=== PATIENT | male | born 1940 | race Caucasian/White ===

== ENCOUNTER 2018-03-12 17:09 | Emergency (ER) | payer MEDICARE, OTHER ==
[2018-03-12] MEDS ORDERED: IOPAMIDOL-300 100 ML VIAL IVP ONE ×2 (17:10→19:15)
--- NOTE | 2018-03-12 18:20 | ED Physician Documentation ---
History of Present Illness - Stated complaint Stated Complaint: HIGH BP - Chief complaint Chief Complaint: Neuro - History obtained from History obtained from: Patient, Family - History of Present Illness Timing: Yesterday Pain level max: 0 Pain level now: 0 Improved by: time Worsened by: nothing - Additonal information Additional information: Patient is a 77-year-old male who presents to the emergency department stating that he had states this lasted approximately 1 hour and was like a dark shade being pulled over the eye. Now resolved. Feels normal currently. No focal numbness or weakness. No difficulty with speech. Patient states that he did receive an epidural steroid injection for pain in his back several days ago. No fevers. Has had some intermittent headaches since that time. Patient also states that he took his blood pressure today and noted to that his blood pressure is high. Did not take it last night. Review of Systems Ten Systems: 10 systems reviewed and negative Constitutional: denies: Fever, Chills Ears: denies: Ear pain Nose: denies: Rhinorrhea / runny nose, Congestion Throat: denies: Sore throat Cardiac: denies: Chest pain / pressure Respiratory: denies: Cough GI: denies: Nausea, Vomiting, Diarrhea : denies: Dysuria Skin: denies: Rash Musculoskeletal: denies: Neck pain, Back pain Neurologic: denies: Focal weakness, Numbness, Headache PD PAST MEDICAL HISTORY - Past Medical History Cardiovascular: High cholesterol, Arrhythmia Neuro: None GI: Hiatal hernia : Benign prostate hypertrophy, Kidney stones Musculoskeletal: Chronic back pain - Past Surgical History General: Hiatal hernia repair, Colonoscopy, EGD Ortho: Spine surgery Neuro: Gamma knife HEENT: Tonsil/Adenoidectomy - Present Medications Home Medications: Ambulatory Orders Medication Instructions Recorded Confirmed Aspirin [Adult Aspirin] 81 mg DAILY 03/12/18 03/12/18 Doxycycline Hyclate 50 mg DAILY 03/12/18 03/12/18 Magnesium 250 mg DAILY 03/12/18 03/12/18 Potassium Citrate [Potassium 03/12/18 Citrate ER] Pravastatin [Pravachol] 40 mg DAILY 03/12/18 03/12/18 Tamsulosin HCl [Flomax] 0.4 mg DAILY 03/12/18 03/12/18 - Allergies Allergies/Adverse Reactions: Allergies Allergy/AdvReac Type Severity Reaction Status Date / Time codeine Allergy Intermediate Nausea Verified 03/12/18 17:27 tramadol Allergy Intermediate Nausea Verified 03/12/18 17:27 - Social History Does the pt smoke?: Yes Smoking Status: Current every day smoker Does the pt drink ETOH?: Yes Does the pt have substance abuse?: No PD ED PE NORMAL - Vitals Vital signs reviewed: Yes - General General: Alert and oriented X 3, No acute distress - HEENT HEENT: PERRL, EOMI, Moist mucous membranes, Other (Normal funduscopic exam bilaterally. Normal ultrasound of the eyes bilaterally. No retinal detachment. Optic nerve diameters are normal. no papilledema) - Neck Neck: Supple, no meningeal sign, No JVD, No bruit - Cardiac Cardiac: RRR, Strong equal pulses - Respiratory Respiratory: No respiratory distress, Clear bilaterally - Abdomen Abdomen: Soft, Non tender, Non distended - Derm Derm: Warm and dry - Neuro Neuro: Alert and oriented X 3, change control coordinator 2-12 intact, No motor deficit, No sensory deficit, Normal speech - Psych Psych: Normal mood, Normal affect Results - Vitals Vitals: Vital Signs - 24 hr 03/12/18 03/12/18 03/12/18 17:20 19:00 20:00 Temperature 36.4 C L Heart Rate 80 60 58 L Respiratory 16 18 18 Rate Blood Pressure 136/93 H 132/96 H 125/88 H O2 Saturation 96 95 95 Oxygen O2 Source Room air - EKG (time done) 1759 Rate: Rate (enter#) (67) Rhythm: NSR [place]: Normal Intervals: Normal NM QRS: Normal Ischemia: Normal ST segments - Labs Labs: Laboratory Tests 03/12/18 03/12/18 03/12/18 18:32 18:32 18:32 WBC 10.3 RBC 4.71 Hgb 15.6 Hct 44.3 MCV 93.9 MCH 33.0 H MCHC 35.2 RDW 13.8 Plt Count 210 MPV 8.7 Neut # (Auto) 6.9 H Lymph # (Auto) 2.2 [place] # (Auto) 0.9 Eos # (Auto) 0.2 Baso # (Auto) 0.1 Absolute Nucleated RBC 0.01 Nucleated RBC % 0.1 ESR 1 Sodium 137 Potassium 3.7 Chloride 104 Carbon Dioxide 26 Anion Gap 7.0 BUN 27 H Creatinine 1.0 Estimated GFR (MDRD) 73 L Glucose 92 Calcium 9.1 Total Bilirubin 0.9 AST 17 ALT 21 Alkaline Phosphatase 43 C-Reactive Protein Total Protein 6.7 Albumin 4.1 Globulin 2.6 Albumin/Globulin Ratio 1.6 03/12/18 18:32 WBC RBC Hgb Hct MCV MCH MCHC RDW Plt Count MPV Neut # (Auto) Lymph # (Auto) [place] # (Auto) Eos # (Auto) Baso # (Auto) Absolute Nucleated RBC Nucleated RBC % ESR Sodium Potassium Chloride Carbon Dioxide Anion Gap BUN Creatinine Estimated GFR (MDRD) Glucose Calcium Total Bilirubin AST ALT Alkaline Phosphatase C-Reactive Protein < 1.0 Total Protein Albumin Globulin Albumin/Globulin Ratio - Rads (name of study) CTA head Radiology: Prelim report reviewed, EMP read contemporaneously, See rad report ( No evidence of acute intracranial abnormality on the noncontrast CT head. Specifically, no evidence of acute infarct, intracranial hemorrhage, mass effect , midline shift, or hydrocephalus. 2. No abnormal enhancement on the postcontrast CT head. 3. No CTA evidence of hemodynamically significant stenosis , large vessel occlusion, acute dissection, aneurysm, or vascular malformation within intracranial arteries. Concurrently obtained CTA neck is dictated separately. ) CTA neck Radiology: Prelim report reviewed, EMP read contemporaneously, See rad report ( Normal neck CT angiogram. No hemodynamically significant stenoses, dissections, occlusions. The left vertebral artery is dominant. 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 ) PD MEDICAL DECISION MAKING - ED course Complexity details: reviewed results, re-evaluated patient, considered differential, d/w patient, d/w family ED course: Patient is a 77-year-old male who presents to the emergency department with what appears to be a transient monocular vision loss of the right eye yesterday. No recurrent symptoms today. No acute findings on CT angiogram of the head or neck. He is in sinus rhythm on EKG. No acute laboratory findings. The MRI is broken this weekend and unavailable. He is comfortable going home and following up closely with his doctor for further care. We will have him start on an aspirin daily. Patient and family counseled regarding signs and symptoms for which I believe and urgent re-evaluation would be necessary. Patient with good understanding of and agreement to plan and is comfortable going home at this time This document was made in part using voice recognition software. While efforts are made to proofread this document, sound alike and grammatical errors may occur. - Sepsis Event Vital Signs: Vital Signs - 24 hr 03/12/18 03/12/18 03/12/18 17:20 19:00 20:00 Temperature 36.4 C L Heart Rate 80 60 58 L Respiratory 16 18 18 Rate Blood Pressure 136/93 H 132/96 H 125/88 H O2 Saturation 96 95 95 Oxygen O2 Source Room air Departure - Departure Disposition: 01 Home, Self Care Clinical Impression: Amaurosis fugax Condition: Good Instructions: ED Transient Ischemic Attack Follow-Up: Rivera Bruce MD [Primary Care Provider] - 03/14/18 Comments: Start on a full dose aspirin daily (325mg). Your EKG, lab testing, and CT angiograms of your head and neck are normal tonight. You should have an MRI with your doctor and will likely need a neurology and ophthalmology referral. Return if you worsen. Discharge Date/Time: 03/12/18 20:51
[2018-03-12] MEDS ORDERED: IOPAMIDOL-300 100 ML VIAL ONE (18:23)
[2018-03-12 18:38] LABS: BASOPHILS # (AUTO) 0.1 10^3/uL (0.0-0.1); EOSINOPHILS # (AUTO) 0.2 10^3/uL (0.0-0.7); EOSINOPHILS % (AUTO) 1.8 %; HGB - HEMOGLOBIN 15.6 g/dL (14.0-18.0); LYMPHOCYTES # (AUTO) 2.2 10^3/uL (1.5-3.5); LYMPHOCYTES % (AUTO) 21.7 %; MEAN CORPUSCULAR HGB CONC 35.2 g/dL (32.0-36.0); MEAN CORPUSCULAR VOLUME 93.9 fL (80.0-94.0); MEAN PLATELET VOLUME 8.7 fL (7.4-11.4); MONOCYTES # (AUTO) 0.9 10^3/uL (0.0-1.0); MONOCYTES % (AUTO) 8.9 %; NEUTROPHILS # (AUTO) 6.9 10^3/uL (1.5-6.6); NEUTROPHILS % (AUTO) 66.6 %; PLT - PLATELET COUNT 210 10^3/uL (130-450); RED BLOOD COUNT 4.71 10^6/uL (4.70-6.10); RED CELL DISTRIBUTION WIDTH 13.8 % (12.0-15.0); WHITE BLOOD COUNT 10.3 x10^3/uL (4.8-10.8)
[2018-03-12 18:51] LABS: ALBUMIN 4.1 g/dL (3.2-5.5); ALBUMIN/GLOBULIN RATIO 1.6 (1.0-2.2); BILIRUBIN,TOTAL 0.9 mg/dL (0.2-1.0); CALCIUM 9.1 mg/dL (8.5-10.3); TOTAL PROTEIN 6.7 g/dL (6.7-8.2)
[2018-03-12] MEDS ORDERED: SODIUM CHLORIDE 0.9% 1,000 ML IV ONE ×2 (18:56)
--- NOTE | 2018-03-12 19:41 | CT Report ---
Reason: R eye vision loss yesterday Procedure Date: 03/12/2018 Accession Number: [id number] / [id number] Procedure: CT - Head Angio CPT Code: FULL RESULT: EXAM: CT ANGIOGRAM HEAD. CT SCAN OF THE HEAD WITHOUT AND WITH CONTRAST. EXAM DATE: 03/12/2018 07:14 PM CLINICAL HISTORY: 77-year-old male. Right eye vision loss yesterday, COMPARISON: None. TECHNIQUE: - CT Scan Head: Using a multidetector scanner, axial images were acquired from the foramen magnum to the skull vertex prior to and following contrast administration. - CT Angiogram: Using a multidetector scanner, high-resolution axial images were acquired from the skull base through vertex following rapid infusion of intravenous contrast. Reformats: Multiplanar MIP reformats were reconstructed. Nascet criteria used for stenosis measurement. IV Contrast: ISOVUE 300 60mL. In accordance with CT protocol optimization, one or more of the following dose reduction techniques were utilized for this exam: automated exposure control, adjustment of mA and/or KV based on patient size, or use of iterative reconstructive technique. FINDINGS: NON-CONTRAST HEAD: Parenchyma: No intraparenchymal hemorrhage. No evidence of mass, midline shift, or CT findings of infarction. Garrison-white differentiation is distinct. Extraaxial Spaces: Normal for age. No subdural or epidural collections identified. Ventricles: Normal in size and position. Sinuses and orbits: Imaged paranasal sinuses, orbits, and mastoids show no significant abnormality. Bones: No evidence of fracture or calvarial defect. Other: None. POST-CONTRAST HEAD: No abnormal enhancement. CT ANGIOGRAM HEAD: Mild atherosclerosis right carotid siphon, no hemodynamically significant stenosis. Mild atherosclerosis left carotid siphon, no hemodynamically significant stenosis. Patent posterior communicating arteries bilaterally. The right vertebral artery is dominant. There is PICA termination of the small left vertebral artery. Basilar artery is unremarkable. Near configuration of the left LEARNING OFFICER with small P1 segment. The left LEARNING OFFICER is otherwise unremarkable. Near configuration of the right LEARNING OFFICER, with small P1 segment. The right LEARNING OFFICER is otherwise unremarkable. The right MCA is unremarkable. The ACAs bilaterally are unremarkable. The left MCA is unremarkable. DURAL VENOUS SINUSES AND MAJOR CENTRAL VEINS: Patent. IMPRESSION: 1. No evidence of acute intracranial abnormality on the noncontrast CT head. Specifically, no evidence of acute infarct, intracranial hemorrhage, mass effect, midline shift, or hydrocephalus. 2. No abnormal enhancement on the postcontrast CT head. 3. No CTA evidence of hemodynamically significant stenosis, large vessel occlusion, acute dissection, aneurysm, or vascular malformation within intracranial arteries. 4. Concurrently obtained CTA neck is dictated separately. RADIA
--- NOTE | 2018-03-12 19:47 | CT Report ---
Reason: R eye vision loss yesterday Procedure Date: 03/12/2018 Accession Number: [id number] / [id number] Procedure: CT - Neck Angio CPT Code: FULL RESULT: EXAM: CT ANGIOGRAM NECK EXAM DATE: 03/12/2018 07:14 PM. CLINICAL HISTORY: 77-year-old male, right eye vision louse yesterday, since resolved COMPARISON: None. TECHNIQUE: Routine axial helical imaging was performed from the skull base through the aortic arch. Reconstructions: Routine multiplanar 3D MIP reconstructions. IV Contrast: ISOVUE 300 60mL. Evaluation of arterial stenosis is based on a NASCET method of measurement. In accordance with CT protocol optimization, one or more of the following dose reduction techniques were utilized for this exam: automated exposure control, adjustment of mA and/or KV based on patient size, or use of iterative reconstructive technique. FINDINGS: Right Carotid: The common carotid, internal carotid, and external carotid arteries are widely patent. No dissection, significant atherosclerotic plaque, or calcification identified. Left Carotid: The common carotid, internal carotid, and external carotid arteries are widely patent. No dissection, significant atherosclerotic plaque, or calcification identified. The cervical left ICA is tortuous but otherwise unremarkable. Vertebrals: The left vertebral artery is dominant. 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 The left vertebral artery is unremarkable. Intracranial Circulation: Concurrently obtained CTA head is dictated separately. Other: The visualized lung apices are clear. Moderate multilevel spondylosis of the visualized spine, no acute fracture or malalignment. The visualized soft tissues demonstrate no acute abnormality. IMPRESSION: 1. Normal neck CT angiogram. No hemodynamically significant stenoses, dissections, occlusions. 2. The left vertebral artery is dominant. 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 RADIA
[2018-03-12 20:24] VITALS: BP 125/88
== END 2018-03-12 20:51 | disposition home or self-care (01) ==
LOC: ED 17:09
DX: G45.3 Amaurosis fugax (principal); Z79.82 Long term (current) use of aspirin; F17.200 Nicotine dependence, unspecified, uncomplicated
CPT/HCPCS: 36415; 70496; 70498; 80053; 85025; 85651; 86140; 93005; 96360; 99283; 99284; Q9967

== ENCOUNTER 2019-03-06 09:27 | Emergency (ER) | payer MEDICARE, OTHER ==
--- NOTE | 2019-03-06 10:12 | ED Physician Documentation ---
PD HPI MALE - Stated complaint Stated Complaint: MALE - Chief complaint Chief Complaint: UTI - History obtained from History obtained from: Patient - History of Present Illness Timing - onset: Yesterday Timing - duration: Days (1/2) Timing - details: Abrupt onset Associated symptoms: Urinary frequency, Unable to urinate. No: Hematuria, Discharge PD HPI MALE CONTRIB FACTORS: No: Sexually active, Exposed to STD Similar symptoms before: Has not had sx before Recently seen: Not recently seen Review of Systems Constitutional: denies: Fever, Chills, Myalgias Nose: denies: Rhinorrhea / runny nose, Congestion Throat: denies: Sore throat Respiratory: denies: Cough GI: denies: Abdominal Pain, Nausea, Vomiting, Diarrhea : reports: Frequency, Unable to Void. denies: Discharge Skin: denies: Rash, Lesions PD PAST MEDICAL HISTORY - Past Medical History Cardiovascular: High cholesterol, Arrhythmia Neuro: None GI: Hiatal hernia : Benign prostate hypertrophy, Kidney stones Musculoskeletal: Chronic back pain - Past Surgical History General: Hiatal hernia repair, Colonoscopy, EGD Ortho: Spine surgery Neuro: Gamma knife HEENT: Tonsil/Adenoidectomy - Present Medications Home Medications: Ambulatory Orders Medication Instructions Recorded Confirmed Aspirin [Adult Aspirin] 81 mg DAILY 03/12/18 03/12/18 Doxycycline Hyclate 50 mg DAILY 03/12/18 03/12/18 Magnesium 250 mg DAILY 03/12/18 03/12/18 Potassium Citrate [Potassium 03/12/18 Citrate ER] Pravastatin [Pravachol] 40 mg DAILY 03/12/18 03/12/18 Tamsulosin HCl [Flomax] 0.4 mg DAILY 03/12/18 03/12/18 Cephalexin [Keflex] 500 mg PO TID #21 capsule 03/06/19 Phenazopyridine HCl [Pyridium] 100 mg PO TID PRN #15 tablet 03/06/19 - Allergies Allergies/Adverse Reactions: Allergies Allergy/AdvReac Type Severity Reaction Status Date / Time codeine Allergy Intermediate Nausea Verified 03/12/18 17:27 tramadol Allergy Intermediate Nausea Verified 03/12/18 17:27 - Social History Does the pt smoke?: Yes Smoking Status: Current every day smoker Does the pt drink ETOH?: Yes Does the pt have substance abuse?: No PD ED PE NORMAL - Vitals Vital signs reviewed: Yes - General General: Alert and oriented X 3, No acute distress, Well developed/nourished - Abdomen Abdomen: Normal bowel sounds, Soft, Non distended - Male Male : Other (normal genitalia) - Back Back: No CVA TTP - Derm Derm: Normal color, Warm and dry Results - Vitals Vitals: Vital Signs - 24 hr 03/06/19 03/06/19 09:40 11:49 Temperature 36.1 C L Heart Rate 80 82 Respiratory 18 16 Rate Blood Pressure 117/88 H 108/92 H O2 Saturation 97 96 Oxygen O2 Source Room air - Labs Labs: Laboratory Tests 03/06/19 03/06/19 10:32 10:45 Sodium 136 Potassium 3.7 Chloride 99 L Carbon Dioxide 29 Anion Gap 8.0 BUN 23 H Creatinine 1.2 Estimated GFR (MDRD) 59 L Glucose 91 Calcium 8.7 Total Bilirubin 1.3 H AST 17 ALT 24 Alkaline Phosphatase 46 Total Protein 6.4 L Albumin 3.7 Globulin 2.7 Albumin/Globulin Ratio 1.4 Lipase 31 Urine Color YELLOW Urine Clarity CLEAR Urine pH 7.0 Ur Specific [place] 1.010 Urine Protein NEGATIVE Urine Glucose (UA) NEGATIVE Urine Ketones NEGATIVE Urine Occult Blood NEGATIVE Urine Nitrite NEGATIVE Urine Bilirubin NEGATIVE Urine Urobilinogen 0.2 (NORMAL) Ur Leukocyte Esterase TRACE H Urine RBC 0-5 Urine WBC 0-3 Ur Squamous Epith Cells RARE Squamous Urine Bacteria Rare Ur Microscopic Review INDICATED Urine Culture Comments INDICATED PD MEDICAL DECISION MAKING - ED course Complexity details: reviewed results (uA suggestive of UTI. Would correlate with symptoms. ), considered differential (mild retention with about 200 ml, but still able to void small amounts. Did not feel he needed guzman. ), d/w patient Departure - Departure Disposition: 01 Home, Self Care Clinical Impression: Urinary frequency, Urinary retention UTI (urinary tract infection) Qualifiers: Urinary tract infection type: acute cystitis Hematuria presence: without hematuria Qualified Code(s): N30.00 - Acute cystitis without hematuria Condition: Stable Record reviewed to determine appropriate education?: Yes Instructions: ED Retention Urinary Male, ED UTI Cystitis Male Follow-Up: Rivera Bruce MD [Primary Care Provider] - Prescriptions: Cephalexin [Keflex] 500 mg PO TID #21 capsule Phenazopyridine HCl [Pyridium] 100 mg PO TID PRN #15 tablet PRN Reason: Abdominal Pain Comments: Stay well-hydrated. You do have some partial retention of urine but not significant enough to need a catheter at this point. Return if it feels like its significantly full and unable to go at all. For now your draining out enough to be okay. The pain medicines you are taking may be contributing to the urinary retention. Decrease or stop those. The cyclobenzaprine and gabapentin should be okay as I did not find any association with urinary retention from those. There was suggestion of an infection on your urine test so we will try to treat with an antibiotic pending the culture results. Take cephalexin 3 times a day for the next week. You can also use phenazopyridine 3 times a day to decrease urinary discomfort and that may allow easier urine output. Recheck if not improving well over the next few days. Resume your Flomax you had been taking previously. Discharge Date/Time: 03/06/19 12:14
[2019-03-06 10:46] LABS: BILIRUBIN,URINE NEGATIVE (NEGATIVE); CLARITY,URINE CLEAR (CLEAR); GLUCOSE, URINE (UA) NEGATIVE (NEGATIVE); KETONES,URINE (UA) NEGATIVE (NEGATIVE); LEUKOCYTE ESTERASE, URINE TRACE (NEGATIVE); NITRITE,URINE NEGATIVE (NEGATIVE); OCCULT BLOOD,URINE NEGATIVE (NEGATIVE); PROTEIN,URINE NEGATIVE (NEGATIVE); UROBILINOGEN,URINE 0.2 (NORMAL) E.U./dL (NORMAL)
[2019-03-06] MEDS ORDERED: PHENAZOPYRIDINE 100 MG TABLET PO STA (10:57)
[2019-03-06] MEDS ORDERED: TAMSULOSIN 0.4 MG CAPSULE PO STA (10:57)
[2019-03-06 11:00] LABS: BACTERIA,URINE Rare /HPF (None Seen); RBC,URINE 0-5 /HPF (0-5); SQUAMOUS EPITHELIAL CELL,UR RARE Squamous (<= Few)
[2019-03-06 11:04] LABS: ALBUMIN 3.7 g/dL (3.2-5.5); ALBUMIN/GLOBULIN RATIO 1.4 (1.0-2.2); BILIRUBIN,TOTAL 1.3 mg/dL (0.2-1.0); CALCIUM 8.7 mg/dL (8.5-10.3); CREATININE 1.2 mg/dL (0.6-1.2); TOTAL PROTEIN 6.4 g/dL (6.7-8.2)
[2019-03-06] MEDS ORDERED: cephALEXin 250 MG CAPSULE PO STA (11:17)
[2019-03-06 11:50] VITALS: BP 108/92
== END 2019-03-06 12:14 | disposition home or self-care (01) ==
LOC: ED 09:27
DX: N30.00 Acute cystitis without hematuria (principal); F17.200 Nicotine dependence, unspecified, uncomplicated
CPT/HCPCS: 36415; 51798; 80053; 81001; 83690; 87086; 99283; A9270; 81003

== ENCOUNTER 2019-03-18 13:23 | Emergency (ER) | payer MEDICARE, OTHER ==
--- NOTE | 2019-03-18 13:34 | ED Physician Documentation ---
PD HPI MALE - Stated complaint Stated Complaint: MALE - Chief complaint Chief Complaint: Abd Pain - History obtained from History obtained from: Patient - History of Present Illness Timing - onset: Today Timing - duration: Hours Timing - details: Abrupt onset (The patient had had a Salazar catheter due to urinary obstruction and been seen by urologist and was doing intermittent self caths to initiate bladder training. However he was unable to pass a catheter today. No fevers. No hematuria. He called his urologist and was directed to come to the ER for a Salazar catheter and to leave it in place until he can see the urologist next week.) Associated symptoms: Unable to urinate (and unable to pass self catheter.) Recently seen: Not recently seen Review of Systems Constitutional: denies: Fever, Chills GI: denies: Abdominal Pain, Nausea, Vomiting : reports: Unable to Void. denies: Hematuria Skin: denies: Rash, Lesions PD PAST MEDICAL HISTORY - Past Medical History Cardiovascular: High cholesterol, Arrhythmia Neuro: None GI: Hiatal hernia : Benign prostate hypertrophy, Kidney stones Musculoskeletal: Chronic back pain - Past Surgical History General: Hiatal hernia repair, Colonoscopy, EGD Ortho: Spine surgery Neuro: Gamma knife HEENT: Tonsil/Adenoidectomy - Present Medications Home Medications: Ambulatory Orders Medication Instructions Recorded Confirmed Aspirin [Adult Aspirin] 81 mg DAILY 03/12/18 03/12/18 Doxycycline Hyclate 50 mg DAILY 03/12/18 03/12/18 Magnesium 250 mg DAILY 03/12/18 03/12/18 Potassium Citrate [Potassium 03/12/18 Citrate ER] Pravastatin [Pravachol] 40 mg DAILY 03/12/18 03/12/18 Tamsulosin HCl [Flomax] 0.4 mg DAILY 03/12/18 03/12/18 Cephalexin [Keflex] 500 mg PO TID #21 capsule 03/06/19 Phenazopyridine HCl [Pyridium] 100 mg PO TID PRN #15 tablet 03/06/19 - Allergies Allergies/Adverse Reactions: Allergies Allergy/AdvReac Type Severity Reaction Status Date / Time codeine Allergy Intermediate Nausea Verified 03/18/19 13:32 tramadol Allergy Intermediate Nausea Verified 03/18/19 13:32 - Social History Does the pt smoke?: Yes Smoking Status: Current every day smoker Does the pt drink ETOH?: Yes Does the pt have substance abuse?: No PD ED PE NORMAL - Vitals Vital signs reviewed: Yes - General General: Alert and oriented X 3, No acute distress (Seems a bit uncomfortable due to bladder fullness), Well developed/nourished - Abdomen Abdomen: Soft, Non tender - Male Male : Other (Normal external genitalia.) - Back Back: No CVA TTP - Derm Derm: Normal color, Warm and dry - Neuro Neuro: Alert and oriented X 3, No motor deficit, Normal speech Results - Vitals Vitals: Vital Signs - 24 hr 03/18/19 03/18/19 13:27 14:54 Temperature 36.3 C L 36.6 C Heart Rate 83 78 Respiratory 19 18 Rate Blood Pressure 133/92 H 124/96 H O2 Saturation 96 96 Oxygen O2 Source Room air - Labs Labs: Laboratory Tests 03/18/19 14:00 Urine Color YELLOW Urine Clarity CLEAR Urine pH 5.5 Ur Specific [place] 1.020 Urine Protein NEGATIVE Urine Glucose (UA) NEGATIVE Urine Ketones NEGATIVE Urine Occult Blood NEGATIVE Urine Nitrite NEGATIVE Urine Bilirubin NEGATIVE Urine Urobilinogen 0.2 (NORMAL) Ur Leukocyte Esterase NEGATIVE Ur Microscopic Review NOT INDICATED Urine Culture Comments NOT INDICATED PD MEDICAL DECISION MAKING - ED course Complexity details: re-evaluated patient (Nursing was able to place the catheter without difficulty. No hematuria. It drained well. We will leave it in place until seen by urology and follow-up next week.), considered differential (Urinary retention and unable to pass self cath.), d/w patient Departure - Departure Disposition: 01 Home, Self Care Clinical Impression: Acute urinary retention Condition: Stable Record reviewed to determine appropriate education?: Yes Follow-Up: Rivera Bruce MD [Primary Care Provider] - Comments: Keep the Salazar catheter in place. Take care of it as you had previously. Follow-up with your urologist on Wednesday to discuss further treatments. Discharge Date/Time: 03/18/19 14:56
[2019-03-18 14:23] LABS: BILIRUBIN,URINE NEGATIVE (NEGATIVE); GLUCOSE, URINE (UA) NEGATIVE (NEGATIVE); KETONES,URINE (UA) NEGATIVE (NEGATIVE); LEUKOCYTE ESTERASE, URINE NEGATIVE (NEGATIVE); NITRITE,URINE NEGATIVE (NEGATIVE); OCCULT BLOOD,URINE NEGATIVE (NEGATIVE); PH,URINE 5.5 PH (5.0-7.5); PROTEIN,URINE NEGATIVE (NEGATIVE); UROBILINOGEN,URINE 0.2 (NORMAL) E.U./dL (NORMAL)
[2019-03-18 14:25] LABS: CLARITY,URINE CLEAR (CLEAR)
[2019-03-18 14:55] VITALS: BP 124/96
== END 2019-03-18 14:56 | disposition home or self-care (01) ==
LOC: ED 13:23
DX: R33.9 Retention of urine, unspecified (principal); F17.200 Nicotine dependence, unspecified, uncomplicated
CPT/HCPCS: 51702; 51798; 81001; 81003; 87086; 99283; 99284

== ENCOUNTER 2019-03-26 13:40 | Emergency (ER) | payer MEDICARE, OTHER ==
--- NOTE | 2019-03-26 13:53 | ED Physician Documentation ---
History of Present Illness - Stated complaint Stated Complaint: UNABLE TO URINATE/BLEEDING - Chief complaint Chief Complaint: General - History obtained from History obtained from: Patient - History of Present Illness Timing: Yesterday Pain level max: 0 Pain level now: 0 Improved by: nothing Worsened by: nothing - Additonal information Additional information: 78-year-old male states that he is an enlarged prostate that he usually uses a self catheter for. Has been unable to self catheterize himself since yesterday. Has had 3 Salazar catheters placed within the last month. Has a urologist at [facility]. Is scheduled to have his prostate removed. No fevers. No vomiting. Review of Systems Constitutional: denies: Fever, Chills GI: denies: Vomiting Skin: denies: Rash Musculoskeletal: denies: Neck pain, Back pain PD PAST MEDICAL HISTORY - Past Medical History Cardiovascular: High cholesterol, Arrhythmia Respiratory: None Neuro: None Endocrine/Autoimmune: None GI: Hiatal hernia : Benign prostate hypertrophy, Kidney stones HEENT: None Psych: None Musculoskeletal: Chronic back pain Derm: None - Past Surgical History Past Surgical History: Yes General: Hiatal hernia repair, Colonoscopy, EGD Ortho: Spine surgery Neuro: Gamma knife HEENT: Tonsil/Adenoidectomy - Present Medications Home Medications: Ambulatory Orders Medication Instructions Recorded Confirmed Aspirin [Adult Aspirin] 81 mg DAILY 03/12/18 03/12/18 Doxycycline Hyclate 50 mg DAILY 03/12/18 03/12/18 Magnesium 250 mg DAILY 03/12/18 03/12/18 Potassium Citrate [Potassium 03/12/18 Citrate ER] Pravastatin [Pravachol] 40 mg DAILY 03/12/18 03/12/18 Tamsulosin HCl [Flomax] 0.4 mg DAILY 03/12/18 03/12/18 Cephalexin [Keflex] 500 mg PO TID #21 capsule 03/06/19 Phenazopyridine HCl [Pyridium] 100 mg PO TID PRN #15 tablet 03/06/19 - Allergies Allergies/Adverse Reactions: Allergies Allergy/AdvReac Type Severity Reaction Status Date / Time codeine Allergy Intermediate Nausea Verified 03/18/19 13:32 tramadol Allergy Intermediate Nausea Verified 03/18/19 13:32 - Social History Does the pt smoke?: Yes Smoking Status: Current every day smoker Does the pt drink ETOH?: Yes Does the pt have substance abuse?: No - Immunizations Immunizations are current?: Yes - POLST Patient has POLST: No PD ED PE NORMAL - Vitals Vital signs reviewed: Yes - General General: Alert and oriented X 3, No acute distress, Well developed/nourished - HEENT HEENT: Moist mucous membranes - Neck Neck: Supple, no meningeal sign - Cardiac Cardiac: RRR - Respiratory Respiratory: No respiratory distress, Clear bilaterally - Abdomen Abdomen: Soft, Non tender, Non distended - Derm Derm: Warm and dry - Neuro Neuro: Alert and oriented X 3 - Psych Psych: Normal mood, Normal affect Results - Vitals Vitals: Vital Signs - 24 hr 03/26/19 03/26/19 13:47 14:33 Temperature 36.2 C L 36.5 C Heart Rate 91 88 Respiratory 18 16 Rate Blood Pressure 129/102 H 128/96 H O2 Saturation 97 98 Oxygen O2 Source Room air PD MEDICAL DECISION MAKING - ED course Complexity details: considered differential, d/w patient ED course: Patient with urinary retention secondary to an enlarged prostate. Salazar catheter was placed. Bladder drained. Salazar will be left in place and he will follow-up with his urologist. Patient counseled regarding signs and symptoms for which I believe and urgent re-evaluation would be necessary. Patient with good understanding of and agreement to plan and is comfortable going home at this time This document was made in part using voice recognition software. While efforts are made to proofread this document, sound alike and grammatical errors may occur. Departure - Departure Disposition: 01 Home, Self Care Clinical Impression: Acute urinary retention Condition: Good Instructions: ED Catheter Care Salazar Follow-Up: Rivera Bruce MD [Primary Care Provider] - Within 1 week Comments: Return if you worsen. Follow up with your urologist for further care. Discharge Date/Time: 03/26/19 14:33
[2019-03-26 14:34] VITALS: BP 128/96
== END 2019-03-26 14:33 | disposition home or self-care (01) ==
LOC: ED 13:40
DX: N40.1 Benign prostatic hyperplasia with lower urinary tract symptoms (principal); R33.8 Other retention of urine; Z79.82 Long term (current) use of aspirin; F17.200 Nicotine dependence, unspecified, uncomplicated
CPT/HCPCS: 51702; 99283; 99284

== ENCOUNTER 2020-04-21 15:42 | Emergency (ER) | payer MEDICARE, OTHER ==
[2020-04-21] MEDS ORDERED: predniSONE 20 MG TABLET PO STA (17:37)
[2020-04-21] MEDS ORDERED: MECLIZINE 12.5 MG TABLET PO STA (17:38)
[2020-04-21] MEDS ORDERED: ONDANSETRON ODT 4 MG TABLET TL STA (17:38)
--- NOTE | 2020-04-21 17:41 | ED Physician Documentation ---
History of Present Illness - Stated complaint Stated Complaint: LT HEADED, N/V - Chief complaint Chief Complaint: Heent - History obtained from History obtained from: Patient, Family - History of Present Illness Timing: Yesterday Pain level max: 0 Pain level now: 0 - Additonal information Additional information: Patient is a 79-year-old male who presents to the emergency department stating that he lost hearing in his right ear last night. This has been attributed to neuritis in the past and normally resolves with a steroid taper. He took a dose of prednisone today and felt lightheaded and dizzy. Emesis x1. Called his PCP who told him to come to the ER. Patient states he feels better now. Has an harry oint with ENT tomorrow. He has no hearing in the left ear since the gamma knife surgery. Worse with movement, better with rest. No focal neurological deficits. Review of Systems Constitutional: denies: Fever, Chills Nose: denies: Rhinorrhea / runny nose, Congestion Throat: denies: Sore throat Cardiac: denies: Chest pain / pressure Respiratory: denies: Cough GI: reports: Nausea, Vomiting. denies: Diarrhea Skin: denies: Rash Musculoskeletal: denies: Neck pain, Back pain Neurologic: denies: Focal weakness, Numbness, Confused, Headache, Head injury, LOC PD PAST MEDICAL HISTORY - Past Medical History Cardiovascular: High cholesterol, Arrhythmia Respiratory: None Neuro: TIA Endocrine/Autoimmune: None GI: Hiatal hernia : Benign prostate hypertrophy, Kidney stones HEENT: Chronic hearing loss Psych: None Musculoskeletal: Chronic back pain Derm: None - Past Surgical History Past Surgical History: Yes General: Hiatal hernia repair, Colonoscopy, EGD Ortho: Spine surgery Neuro: Gamma knife HEENT: Tonsil/Adenoidectomy - Present Medications Home Medications: Ambulatory Orders Medication Instructions Recorded Confirmed Aspirin [Adult Aspirin] 81 mg DAILY 03/12/18 03/12/18 Doxycycline Hyclate 50 mg DAILY 03/12/18 03/12/18 Magnesium 250 mg DAILY 03/12/18 03/12/18 Potassium Citrate [Potassium 03/12/18 Citrate ER] Pravastatin [Pravachol] 40 mg DAILY 03/12/18 03/12/18 Tamsulosin HCl [Flomax] 0.4 mg DAILY 03/12/18 03/12/18 Cephalexin [Keflex] 500 mg PO TID #21 capsule 03/06/19 Phenazopyridine HCl [Pyridium] 100 mg PO TID PRN #15 tablet 03/06/19 Meclizine HCl 25 mg PO Q6H PRN #20 tablet 04/21/20 Ondansetron Odt [Zofran] 4 mg TL Q6H PRN #10 tablet 04/21/20 - Allergies Allergies/Adverse Reactions: Allergies Allergy/AdvReac Type Severity Reaction Status Date / Time codeine Allergy Intermediate Nausea Verified 04/21/20 15:59 tramadol Allergy Intermediate Nausea Verified 04/21/20 15:59 - Social History Does the pt smoke?: Yes Smoking Status: Light tobacco smoker Does the pt drink ETOH?: Yes ETOH Use: Wine Does the pt have substance abuse?: No - Immunizations Immunizations are current?: Yes - POLST Patient has POLST: No PD ED PE NORMAL - Vitals Vital signs reviewed: Yes - General General: Alert and oriented X 3, No acute distress - HEENT HEENT: PERRL, Other (Positive horizontal nystagmus to the right) - Neck Neck: Supple, no meningeal sign - Cardiac Cardiac: RRR, Strong equal pulses - Respiratory Respiratory: No respiratory distress, Clear bilaterally - Abdomen Abdomen: Soft, Non tender, Non distended - Derm Derm: Warm and dry - Extremities Extremities: No edema - Neuro Neuro: Alert and oriented X 3, ios developer 2-12 intact, No motor deficit, No sensory deficit, Normal speech Eye Opening: Spontaneous Motor: Obeys Commands Verbal: Oriented GCS Score: 15 - Psych Psych: Normal mood, Normal affect Results - Vitals Vitals: Vital Signs - 24 hr 04/21/20 04/21/20 04/21/20 15:59 17:22 18:00 Temperature 36.5 C Heart Rate 59 L 68 67 Respiratory 16 16 16 Rate Blood Pressure 124/96 H 122/86 H 131/86 H O2 Saturation 94 98 95 Oxygen O2 Source Room air PD MEDICAL DECISION MAKING - ED course Complexity details: considered differential, d/w patient, d/w family ED course: 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 Will place on steroids for home. Also given meclizine and Zo regis. No evidence of acute stroke. No evidence of TIA. Normal cerebellar test. Patient counseled regarding signs and symptoms for which I believe and urgent re-evaluation would be necessary. Patient with good understanding of and agreement to plan and is comfortable going home at this time This document was made in part using voice recognition software. While efforts are made to proofread this document, sound alike and grammatical errors may occur. 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 Return if you worsen. Do not drive until cleared by ENT. Discharge Date/Time: 04/21/20 18:11
[2020-04-21 18:01] VITALS: BP 131/86
== END 2020-04-21 18:11 | disposition home or self-care (01) ==
LOC: ED 15:42
DX: H93.3X1 Disorders of right acoustic nerve (principal); F17.200 Nicotine dependence, unspecified, uncomplicated; Z79.82 Long term (current) use of aspirin
CPT/HCPCS: 99282; 99284; A9270; J7512; Q0162